=== PATIENT | female | born 1940 | race Caucasian/White ===

== ENCOUNTER 2018-07-31 12:08 | Outpatient (CLI) | payer MEDICARE, BC, OTHER | END 2018-07-31 12:09 | disposition home or self-care (01) | LOC: BICMAMMO 12:08 | PROVIDERS: ATTEND Obstetrics & Gynecology | DX: Z12.31 Encounter for screening mammogram for malignant neoplasm of breast (principal); Z80.3 Family history of malignant neoplasm of breast | CPT/HCPCS: 77063; 77067 ==

== ENCOUNTER 2019-03-23 07:03 | Outpatient (CLI) | payer MEDICARE, BC, OTHER ==
--- NOTE | 2019-03-23 09:57 | MRI ---
MRI ABDOMEN WITH AND WITHOUT CONTRAST: Date: 03/23/19 HISTORY: Z12.11 screening for malignant neoplasm of colon. COMPARISON: Ultrasound dated 01/31/19. TECHNIQUE: MRI abdomen performed prior to and after the intravenous administration of contrast. 3D rendering was provided. FINDINGS: Large sliding hiatal hernia. No pericardial effusion. No abnormal arterial enhancing hepatic mass. Gallbladder is unremarkable. Spleen is unremarkable. Exophytic 7 mm mass interpolar left kidney has slight increased T1 signal wit h small masses really too small to fully characterize, although not felt to have significant enhancem ent. There is a single T2 hyperintense focus within the ventral pancreatic body measuring 7 mm without enh ancement. No definite connection with the main pancreatic duct. No intrahepatic or extrahepatic biliary dilatat ion. No retroperitoneal or periaortic adenopathy. Aortic contour is nonaneurysmal. IMPRESSION: 1. No abnormal hepatic mass. 2. 7-8 mm T2 hyperintense focus of the ventral pancreatic body. Per ACR white paper, a follow-up MRI pancreatic protocol in 2 years is recommended given its small size and patient age. 3. 7-8 mm intrinsically T1 hyperintense focus left kidney, which is exophytic, likely a hemorrhagic/ proteinaceous cyst without significant enhancement. 4. No acute intra-abdominal abnormality. POS: TPC
[2019-03-23] MEDS ORDERED: Gadobenate Dimeglumine 529 MG/1 ML (20ML VIAL) ONE (12:27)
== END 2019-03-23 07:04 | disposition home or self-care (01) ==
LOC: BICMRI 07:03
PROVIDERS: ATTEND Internal Medicine Gastroenterology
DX: Z12.11 Encounter for screening for malignant neoplasm of colon (principal); R10.13 Epigastric pain; R10.31 Right lower quadrant pain; R11.2 Nausea with vomiting, unspecified; R93.422 Abnormal radiologic findings on diagnostic imaging of left kidney
CPT/HCPCS: 74183; 82565; A9577

== ENCOUNTER 2019-06-07 14:50 | Outpatient (CLI) | payer MEDICARE, BC, OTHER ==
--- NOTE | 2019-06-07 15:07 | RAD ---
RIGHT HIP 2 VIEWS: HISTORY: Right hip pain FINDINGS: There are degenerative changes manifested by osteophyte formation and joint space narrowing. No fract ure, dislocation or bony destruction is seen. IMPRESSION: Moderate-severe right hip osteoarthritis.
== END 2019-06-07 14:51 | disposition home or self-care (01) ==
LOC: BICRAD 14:50
PROVIDERS: ATTEND Physical Medicine & Rehabilitation
DX: M25.551 Pain in right hip (principal); M16.11 Unilateral primary osteoarthritis, right hip

== ENCOUNTER → 2019-07-11 | Day surgery (SDC) | payer MEDICARE, BC, OTHER ==
[~2019-07-11] MED LIST: Oxymetazoline HCl 0.05% ( 15 ML ) ONE
== END ==
LOC: ENDO/OP 07:54
PROVIDERS: ATTEND Surgery
DX: K44.9 Diaphragmatic hernia without obstruction or gangrene (principal); M19.90 Unspecified osteoarthritis, unspecified site; I10 Essential (primary) hypertension; E07.9 Disorder of thyroid, unspecified; Z79.899 Other long term (current) drug therapy
CPT/HCPCS: 91010

== ENCOUNTER 2019-07-16 10:15 | Inpatient (IN) | payer MEDICARE, BC, OTHER ==
[2019-07-16 10:40] VITALS: BMI 31.3
[2019-07-18] MEDS ORDERED: Bupivacaine/Epinephrine 0.25% 30 ML VIAL ONE (06:55)
[2019-07-18] MEDS ORDERED: Fentanyl 100 MCG/2 ML VIAL ONE (06:59)
[2019-07-18] MEDS ORDERED: SUGAMMADEX SODIUM 200 MG/2 ML VIAL ONE (07:18)
[2019-07-18] MEDS ORDERED: Dextrose 5% in Water 1,000 ML IV PRN (10:15)
[2019-07-18] MEDS ORDERED: Ondansetron HCl/PF 4 MG/2 ML Vial IVP PRN (10:15)
[2019-07-18] MEDS ORDERED: Promethazine HCl 25 MG/ML VIAL IM PRN ×2 (10:15)
[2019-07-18] MEDS ORDERED: hydrALAZINE 20 MG/ML VIAL SLOW IVP PRN (10:15)
[2019-07-18] MEDS ORDERED: Promethazine HCl 25 MG/ML VIAL SLOW IVP PRN (10:15)
[2019-07-18] MEDS ORDERED: Hydrocodone-Acetamin 15 ML UDCUP PO PRN (10:15)
[2019-07-18] MEDS ORDERED: Dextrose 50% Abboject 50 ML SYRINGE SLOW IVP PRN (10:15)
[2019-07-18] MEDS ORDERED: Morphine 2 MG/ML SYRINGE SLOW IVP PRN (10:15)
[2019-07-18] MEDS ORDERED: Morphine 4 MG/ML VIAL SLOW IVP PRN (10:15)
[2019-07-18] MEDS ORDERED: Ondansetron PF 4 MG/2 ML Vial IVP PRN (10:15)
[2019-07-18] MEDS ORDERED: HYDROmorphone 2 MG/ML VIAL SLOW IVP PRN (10:15)
[2019-07-18] MEDS ORDERED: Acetaminophen 1,000 MG in Premix Bag 1 BAG IVPB SCH (10:15)
[2019-07-18] MEDS ORDERED: Meperidine HCl/PF 25 MG/ML VIAL SLOW IVP PRN (10:15)
[2019-07-18] MEDS ORDERED: Ketorolac Tromethamine 30 MG/ML VIAL IVP PRN (10:15)
[2019-07-18] MEDS ORDERED: diphenhydrAMINE 50 MG/ML VIAL IVP PRN (10:15)
[2019-07-18] MEDS ORDERED: Ondansetron PF 4 MG/2 ML Vial ONE (10:33)
[2019-07-18] MEDS ORDERED: Ketorolac Tromethamine 30 MG/ML VIAL IVP SCH (12:00)
[2019-07-18] MEDS ORDERED: D5 1/2 NS w/20 mEq KCL 1,000 ML ONE (12:01)
--- NOTE | 2019-07-18 13:43 | OP ---
DATE OF PROCEDURE: 07/18/2019 PREOPERATIVE DIAGNOSIS: Large paraesophageal hiatal hernia. PROCEDURE PERFORMED: Laparoscopic paraesophageal hiatal hernia repair with mesh with esophagogastroscopy. INDICATIONS: The patient is 78-year-old female with large paraesophageal hiatal hernia that is symptomatic. FINDINGS: About three-quarters of her chest was intra-abdominally. She had extremely large diaphragmatic defect repaired both with sutures and mesh. DESCRIPTION OF PROCEDURE: After informed consent was obtained, the patient was taken to the operating room and given general endotracheal anesthesia. She was placed in the supine position. Abdomen was prepped and draped in usual fashion. Local anesthesia was infiltrated subcutaneously and deep and a 5-mm incision was performed approximately 6 inches below the xiphoid slightly to the left. Veress needle was inserted. Drop test was performed. Pneumoperitoneum was created to a volume of 2 L of carbon dioxide. Utilizing a bladeless 5-mm trocar and 0-degree laparoscope, direct visual entry into the abdominal cavity was performed. Pneumoperitoneum was then created to a pressure of 15 mmHg and the patient placed in steep reverse Trendelenburg position. Pablo liver retractor was inserted. Left lobe of the liver retracted superiorly. A 5-mm port was placed just to the left of the falciform. An 8-mm port placed left subcostal, and another 5-mm port placed further lateral left abdominal wall. The defect was easily seen. It was extremely large. The stomach was retracted from the defect. Some of it was still attached with peritoneal attachments. The gastrophrenic ligament was divided utilizing the LigaSure. The peritoneum was opened circumferentially around the crura. This allowed further reduction of the hernia sac and the stomach. Eventually, I was able to get the stomach dissected out and a retroesophageal window was created using blunt dissection. A Leisenring drain was then placed through this to aid in dissection and retraction. The stomach was retracted inferiorly to include a piece of esophagus. The hiatal opening was thoroughly dissected out. Then, a 43-[place] bougie was inserted directed into the stomach. A posterior crural plication was performed utilizing 0 Ethibond with the Sew-Right and Ti-Knot device, 4 sutures used. Then, biologic mesh was used. This was cut as a heart shape with a [place]ak cut out in the middle, hydrated further and inserted intra-abdominally. It was sutured to the diaphragm around the esophagus with interrupted 2-0 silk sutures tied intracorporeally. Then, the short gastrics were taken down utilizing the LigaSure. The fundus was grasped and brought to the right side of the esophagus and a fundoplication was performed between left fundus, esophagus, and right fundus with interrupted 2-0 silk sutures tied intracorporeally. Then, intraoperative endoscopy was performed. The video endoscope inserted under direct vision and advanced into the stomach. The stomach had no torsion. There was no paraesophageal component. The pylorus was cannulated. Everything was fine. Stomach decompressed. Scope removed. Then, a gastropexy was performed between the fundus and the left abdominal wall with a 2-0 silk suture tied intracorporeally. Then, Tisseel tissue sealant was applied circumferentially to the diaphragm and wrapped. The abdomen was decompressed. Scope was removed. The skin was closed with interrupted 4-0 Rapide. Dermabond was applied. The patient tolerated the procedure well, transferred to Recovery in good condition. Sponge and needle count verified correct x2. Job ID: [id number]
[2019-07-18] MEDS ORDERED: CEFAZOLIN 2 GM in Premix Bag 1 BAG IVPB SCH (14:00)
[2019-07-18] MEDS: Acetaminophen 1,000 MG in Premix Bag 1 BAG IVPB SCH ×2 (14:40→20:17)
[2019-07-18] MEDS: Ketorolac Tromethamine 30 MG/ML VIAL IVP SCH ×2 (16:33→23:39)
[2019-07-18] MEDS: CEFAZOLIN 2 GM in Premix Bag 1 BAG IVPB SCH ×2 (16:33→23:39)
[2019-07-18] MEDS ORDERED: Chloraseptic Spray 180 ml Bottle PO PRN (16:53)
[2019-07-18] MEDS ORDERED: Cepastat Lozenges 1 LOZ PO PRN (16:53)
[2019-07-18] MEDS: D5 1/2 NS w/20 mEq KCL 1,000 ML IV SCH ×2 (18:55→20:17)
[2019-07-19] MEDS: Acetaminophen 1,000 MG in Premix Bag 1 BAG IVPB SCH ×2 (03:27→10:59)
[2019-07-19] MEDS: Ketorolac Tromethamine 30 MG/ML VIAL IVP SCH ×3 (04:26→17:41)
[2019-07-19] MEDS: D5 1/2 NS w/20 mEq KCL 1,000 ML IV SCH ×2 (04:27→11:34)
[2019-07-19 05:57] LABS: #Monocytes 0.9 thou/uL (0.11-0.59); #Neutrophils 8.5 thou/uL (1.40-6.50); %Basophils 0.2 % (0.0-1.0); %Eosinophils 0.3 % (0.0-10.0); %Lymphocytes 9.6 % (21.0-51.0); %Monocytes 8.8 % (0.0-10.0); %Neutrophils 81.2 % (42.0-75.0); Hemoglobin 11.3 g/dL (12.0-16.0); Mean Corpuscular Hemoglobin 31.9 pg (27.0-31.0); Mean Corpuscular Volume 93.9 fL (78.0-98.0); Platelet Count 129 thou/uL (130-400); RBC Distribution Width 11.8 % (11.5-14.5); Red Blood Cell (RBC) Count 3.54 mill/uL (4.20-5.40); White Blood Cell (WBC) Count 10.4 thou/uL (4.8-10.8)
[2019-07-19 06:09] LABS: Anion Gap 10 mmol/L (10-20); BUN (Urea Nitrogen) 16 mg/dL (9.8-20.1); Calc. Creatinine Clearance 73 mL/min (70-130); Calcium 8.1 mg/dL (7.8-10.44); Carbon Dioxide 24 mmol/L (23-31); Chloride 108 mmol/L (98-107); Estimated GFR-MDRD 61; Glucose 146 mg/dL (83-110); Potassium 3.9 mmol/L (3.5-5.1); Sodium 138 mmol/L (136-145)
[2019-07-19] MEDS ORDERED: Pantoprazole 40 MG VIAL IVP SCH (09:00)
[2019-07-19] MEDS ORDERED: Enoxaparin Sodium 30 MG/0.3 ML SYRINGE SC SCH (09:00)
--- NOTE | 2019-07-19 09:18 | RAD ---
XR UGI Single Contrast No Air HISTORY: Postop hiatal hernia repair surgery. Procedure: Single sip swallow study was performed with administration of 15 mL contrast under fluoros copy. FINDINGS: Contrast traverses the gastroesophageal junction. No leak or evidence of obstruction. IMPRESSION: Normal study.
[2019-07-19 15:30] VITALS: BP 148/75; TEMP 96.1
--- NOTE | 2019-07-19 23:31 | DIS ---
DATE OF ADMISSION: 07/18/2019 DATE OF DISCHARGE: 07/19/2019 DISCHARGE DIAGNOSIS: Large paraesophageal hiatal hernia. PROCEDURES DURING ADMISSION: Laparoscopic paraesophageal hiatal hernia repair with mesh, esophagogastroscopy, postoperative Gastrografin swallow. HOSPITAL COURSE: The patient was admitted, taken to the operating room where she underwent repair of this large hiatal hernia. Postoperatively, she has done well. Her pain is well controlled on p.o. medications. She is tolerating liquids well. X-ray was fine. She is discharged home on hydrocodone and Zofran. She will follow up with me in 2 weeks. Job ID: [id number]
== END 2019-07-19 17:41 | disposition home or self-care (01) | DRG 328 ==
LOC: SURG A 07-18 06:02
PROVIDERS: ADMIT Surgery; ATTEND Surgery
PROC: 0BUT4JZ Supplement Diaphragm with Synthetic Substitute, Percutaneous Endoscopic Approach (ICD-10-PCS; principal; 2019-07-18)
PROC: 0DJ08ZZ Inspection of Upper Intestinal Tract, Via Natural or Artificial Opening Endoscopic (ICD-10-PCS; 2019-07-18)
PROC: 0DV44ZZ Restriction of Esophagogastric Junction, Percutaneous Endoscopic Approach (ICD-10-PCS; 2019-07-18)
DX: K44.9 Diaphragmatic hernia without obstruction or gangrene (principal); Z98.49 Cataract extraction status, unspecified eye
CPT/HCPCS: 36415; 74241; 80048; 80053; 85025; 93005; 93010; 94760; C9113; J0131; J0690; J1650; J1885; J2405; J3010; Q4130

== ENCOUNTER 2019-07-16 10:28 | Outpatient (CLI) | payer MEDICARE, BC, OTHER ==
[2019-07-16 11:58] LABS: #Basophils 0.1 thou/uL (0.0-0.2); #Eosinphils 0.1 thou/uL (0.0-0.7); #Lymphocytes 1.6 thou/uL (1.20-3.40); #Monocytes 0.6 thou/uL (0.11-0.59); #Neutrophils 4.4 thou/uL (1.40-6.50); %Eosinophils 1.6 % (0.0-10.0); %Lymphocytes 23.4 % (21.0-51.0); %Monocytes 8.7 % (0.0-10.0); %Neutrophils 65.2 % (42.0-75.0); Hemoglobin 14.3 g/dL (12.0-16.0); Mean Corpuscular HGB CONC 32.8 g/dL (32.0-36.0); Mean Corpuscular Hemoglobin 30.9 pg (27.0-31.0); Mean Platelet Volume 8.9 fL (7.4-10.4); Platelet Count 173 thou/uL (130-400); RBC Distribution Width 11.8 % (11.5-14.5); Red Blood Cell (RBC) Count 4.64 mill/uL (4.20-5.40); White Blood Cell (WBC) Count 6.7 thou/uL (4.8-10.8)
[2019-07-16 12:20] LABS: ALT (SGPT) 11 U/L (8-55); AST (SGOT) 17 U/L (5-34); Albumin 4.3 g/dL (3.4-4.8); Alkaline Phosphatase 62 U/L (40-110); Anion Gap 13 mmol/L (10-20); BUN (Urea Nitrogen) 16 mg/dL (9.8-20.1); Bilirubin, Total 0.5 mg/dL (0.2-1.2); Calc. Creatinine Clearance 0 mL/min (70-130); Calcium 9.7 mg/dL (7.8-10.44); Carbon Dioxide 28 mmol/L (23-31); Chloride 105 mmol/L (98-107); Estimated GFR-MDRD 60; Globulin 2.6 g/dL (2.4-3.5); Glucose 95 mg/dL (83-110); Potassium 4.6 mmol/L (3.5-5.1); Protein, Total 6.9 g/dL (6.0-8.3); Sodium 141 mmol/L (136-145)
--- NOTE | 2019-07-17 16:21 | EKG ---
Test Reason : Blood Pressure : / mmHG Vent. Rate : 067 BPM Atrial Rate : 067 BPM P-R Int : 154 ms QRS Dur : 084 ms QT Int : 422 ms P-R-T Axes : 053 037 045 degrees QTc Int : 445 ms Normal sinus rhythm Normal ECG Confirmed by GREGORIO ERAZO ([id number]) on 07/17/2019 4:21:47 PM Referred By: CORINNE Confirmed By:GREGORIO ERAZO
== END 2019-07-16 10:29 | disposition home or self-care (01) ==
LOC: LABBT 10:28
PROVIDERS: ATTEND Surgery
DX: Z01.818 Encounter for other preprocedural examination (principal); K44.9 Diaphragmatic hernia without obstruction or gangrene
CPT/HCPCS: 80053; 85025; 93005; 93010

== ENCOUNTER 2019-09-04 10:40 | Outpatient (CLI) | payer MEDICARE, BC, OTHER ==
--- NOTE | 2019-09-04 15:18 | MMO ---
Bilateral MAMMO Bilat Screen [facility]. CLINICAL HISTORY: Patient is 78 years old and is seen for screening. The patient has no personal history of cancer. The patient has a history of right Ultrasound Guided Core Biopsy in ?2000 - benign. VIEWS: The views performed were: bilateral craniocaudal with tomosynthesis and bilateral mediolateral oblique with tomosynthesis. FILMS COMPARED: The present examination has been compared to prior imaging studies performed at [facility] on 09/22/2015, 09/23/2016, 07/26/2017 and 07/31/2018. This study has been interpreted with the assistance of computer-aided detection. MAMMOGRAM FINDINGS: There are scattered fibroglandular densities. There are benign appearing and vascular calcifications seen in both breasts. There are no suspicious masses, suspicious calcifications, or new areas of architectural distortion. IMPRESSION: THERE IS NO MAMMOGRAPHIC EVIDENCE OF MALIGNANCY. A ROUTINE FOLLOW-UP MAMMOGRAM IN 1 YEAR IS RECOMMENDED. THE RESULTS OF THIS EXAM WERE SENT TO THE PATIENT. ACR BI-RADS Category 2 - Benign finding MAMMOGRAPHY NOTE: 1. A negative mammogram report should not delay a biopsy if a dominant of clinically suspicious mass is present. 2. Approximately 10% to 15% of breast cancers are not detected by mammography. 3. Adenosis and dense breasts may obscure an underlying neoplasm. Reported by: SRIKANTH HUNT MD Electonically Signed: [id number]
== END 2019-09-04 10:41 | disposition home or self-care (01) ==
LOC: BICMAMMO 10:40
PROVIDERS: ATTEND Obstetrics & Gynecology
DX: Z12.31 Encounter for screening mammogram for malignant neoplasm of breast (principal)
CPT/HCPCS: 77063; 77067

== ENCOUNTER 2020-09-05 10:19 | Outpatient (CLI) | payer MEDICARE, BC, OTHER ==
--- NOTE | 2020-09-05 11:29 | MMO ---
Bilateral MAMMO Bilat Screen [facility]. CLINICAL HISTORY: Patient is 79 years old and is seen for screening. The patient has no personal history of cancer. The patient has a history of right Ultrasound Guided Core Biopsy in ?2000 - benign. VIEWS: The views performed were: bilateral craniocaudal with tomosynthesis and bilateral mediolateral oblique with tomosynthesis. FILMS COMPARED: The present examination has been compared to prior imaging studies performed at [facility] on 09/23/2016, 07/26/2017, 07/31/2018 and 09/04/2019. This study has been interpreted with the assistance of computer-aided detection. MAMMOGRAM FINDINGS: There are scattered fibroglandular densities. Benign calcifications are noted bilaterally. Right biopsy clip. There are no suspicious masses, suspicious calcifications, or new areas of architectural distortion. IMPRESSION: THERE IS NO MAMMOGRAPHIC EVIDENCE OF MALIGNANCY. A ROUTINE FOLLOW-UP MAMMOGRAM IN 1 YEAR IS RECOMMENDED. THE RESULTS OF THIS EXAM WERE SENT TO THE PATIENT. ACR BI-RADS Category 2 - Benign finding MAMMOGRAPHY NOTE: 1. A negative mammogram report should not delay a biopsy if a dominant of clinically suspicious mass is present. 2. Approximately 10% to 15% of breast cancers are not detected by mammography. 3. Adenosis and dense breasts may obscure an underlying neoplasm. Reported by: GREGORIA MONACO MD Electonically Signed: [id number]
== END 2020-09-05 10:20 | disposition home or self-care (01) ==
LOC: BICMAMMO 10:19
PROVIDERS: ATTEND Internal Medicine
DX: Z12.31 Encounter for screening mammogram for malignant neoplasm of breast (principal); Z91.89 Other specified personal risk factors, not elsewhere classified
CPT/HCPCS: 77063; 77067

== ENCOUNTER 2021-07-09 13:04 | Outpatient (CLI) | payer MEDICARE, BC, OTHER ==
[2021-07-09 15:04] LABS: #Eosinphils 0.1 10x3/uL (0.0-0.5); #Monocytes 0.6 10x3/uL (0.0-1.1); %Basophils 0.3 % (0.0-2.0); %Eosinophils 1.3 % (0.0-6.0); %Lymphocytes 23.6 % (18.0-47.0); %Neutrophils 64.5 % (40.0-75.0); Hemoglobin 13.6 g/dL (12.0-15.5); Mean Corpuscular HGB CONC 32.8 g/dL (32.0-36.0); Mean Corpuscular Hemoglobin 31.2 pg (27.0-33.0); Mean Corpuscular Volume 95.2 fl (81.6-98.3); Mean Platelet Volume 11.9 fl (7.4-10.4); Platelet Count 175 10x3/uL (150-450); RBC Distribution Width 13.2 % (11.5-14.5); Red Blood Cell (RBC) Count 4.36 10x6/uL (3.90-5.03); White Blood Cell (WBC) Count 6.2 10x3/uL (3.5-10.5)
[2021-07-09 15:13] LABS: Prothrombin Time 11.1 sec (9.5-12.1)
[2021-07-09 15:21] LABS: Anion Gap 15 mmol/L (10-20); BUN (Urea Nitrogen) 20 mg/dL (9.8-20.1); Calc. Creatinine Clearance 0 mL/min (70-130); Calcium 9.4 mg/dL (7.8-10.44); Carbon Dioxide 24 mmol/L (23-31); Chloride 104 mmol/L (98-107); Glucose 86 mg/dL (83-110); Potassium 4.3 mmol/L (3.5-5.1); Sodium 139 mmol/L (136-145)
[2021-07-10 12:07] LABS: SARS-CoV-2 PCR by NAA Not Detected (NotDetected)
== END 2021-07-09 13:05 | disposition home or self-care (01) ==
LOC: LABBT 13:04
PROVIDERS: ATTEND Orthopaedic Surgery
DX: Z01.818 Encounter for other preprocedural examination (principal); M16.11 Unilateral primary osteoarthritis, right hip; Z20.822 Contact with and (suspected) exposure to COVID-19
CPT/HCPCS: 80048; 85025; 85610; 87081; U0003; U0005

== ENCOUNTER 2021-07-14 06:37 | Day surgery (SDC) | payer MEDICARE, BC, OTHER ==
[2021-07-13 10:06] VITALS: BMI 31.3
[2021-07-14] MEDS ORDERED: Sodium Chloride 0.9% 100 ML ONE (07:08)
[2021-07-14] MEDS ORDERED: Tranexamic Acid 1,000 MG/10 ML VIAL ONE (07:08)
[2021-07-14] MEDS ORDERED: Vancomycin 1.5 GRAM/300 ML BAG 1.5 GM in Premix Bag 1 BAG IVPB SCH (07:15)
[2021-07-14] MEDS ORDERED: Midazolam HCl 2 mg/2 ml Vial ONE ×2 (08:01→09:07)
[2021-07-14] MEDS ORDERED: Fentanyl 100 MCG/2 ML VIAL ONE ×2 (08:01→09:02)
[2021-07-14] MEDS ORDERED: Bupivacaine HCl 0.5%/Epinephrine 1:200,000/PF 30 ml Vial ONE (09:09)
[2021-07-14] MEDS ORDERED: PHENYLEPHRINE-NS 100 MCG/ML 10 ML SYRINGE ONE (09:09)
[2021-07-14] MEDS ORDERED: ePHEDrine 50 MG/ML VIAL ONE (09:09)
[2021-07-14] MEDS ORDERED: Bupivacaine PF 0.5% 30 ML VIAL ONE (10:16)
[2021-07-14] MEDS ORDERED: Promethazine HCl 25 MG/ML VIAL IVPB PRN (10:17)
[2021-07-14] MEDS ORDERED: Ondansetron HCl/PF 4 MG/2 ML Vial IVP PRN (10:17)
[2021-07-14] MEDS ORDERED: Promethazine HCl 25 MG/ML VIAL IM PRN (10:17)
[2021-07-14] MEDS ORDERED: Ondansetron PF 4 MG/2 ML Vial ONE (12:11)
[2021-07-14] MEDS ORDERED: HYDROcodone/Acetaminophen 5/325 mg Tablet ONE ×2 (13:22→13:25)
== END 2021-07-14 13:44 | disposition home or self-care (01) ==
LOC: SDC 06:37
PROVIDERS: ATTEND Orthopaedic Surgery
PROC: 0SR904A Replacement of Right Hip Joint with Ceramic on Polyethylene Synthetic Substitute, Uncemented, Open Approach (ICD-10-PCS; principal; 2021-07-14)
PROC: 3E0T3BZ Introduction of Anesthetic Agent into Peripheral Nerves and Plexi, Percutaneous Approach (ICD-10-PCS; 2021-07-14)
DX: M16.11 Unilateral primary osteoarthritis, right hip (principal); I10 Essential (primary) hypertension; E07.9 Disorder of thyroid, unspecified; Z79.82 Long term (current) use of aspirin; Z79.899 Other long term (current) drug therapy
CPT/HCPCS: C1776; J2250; J2405; J3010; J3370; J3490; S0020

== ENCOUNTER 2022-01-13 11:18 | Outpatient (CLI) | payer MEDICARE, BC, OTHER ==
[2022-01-13 13:09] LABS: #Eosinphils 0.1 10x3/uL (0.0-0.5); #Monocytes 0.7 10x3/uL (0.0-1.1); #Neutrophils 4.5 10x3/uL (1.5-8.4); %Basophils 0.3 % (0.0-2.0); %Eosinophils 1.9 % (0.0-6.0); %Lymphocytes 22.7 % (18.0-47.0); %Neutrophils 64.8 % (40.0-75.0); Hemoglobin 14.1 g/dL (12.0-15.5); Mean Corpuscular HGB CONC 33.2 g/dL (32.0-36.0); Mean Corpuscular Hemoglobin 30.9 pg (27.0-33.0); Mean Platelet Volume 11.9 fl (7.4-10.4); Platelet Count 195 10x3/uL (150-450); RBC Distribution Width 14.2 % (11.5-14.5); Red Blood Cell (RBC) Count 4.57 10x6/uL (3.90-5.03); White Blood Cell (WBC) Count 6.9 10x3/uL (3.5-10.5)
[2022-01-13 13:31] LABS: ALT (SGPT) 10 U/L (8-55); AST (SGOT) 18 U/L (5-34); Albumin 3.9 g/dL (3.4-4.8); Alkaline Phosphatase 69 U/L (40-110); Anion Gap 14 mmol/L (10-20); BUN (Urea Nitrogen) 18 mg/dL (9.8-20.1); Bilirubin, Total 0.5 mg/dL (0.2-1.2); Calc. Creatinine Clearance 0 mL/min (70-130); Calcium 9.2 mg/dL (7.8-10.44); Carbon Dioxide 25 mmol/L (23-31); Chloride 106 mmol/L (98-107); Globulin 2.5 g/dL (2.4-3.5); Glucose 111 mg/dL (83-110); Potassium 4.3 mmol/L (3.5-5.1); Protein, Total 6.4 g/dL (5.8-8.1); Sodium 141 mmol/L (136-145)
[2022-01-13 21:50] LABS: SARS-CoV-2 PCR by NAA Not Detected (NotDetected)
== END 2022-01-13 11:19 | disposition home or self-care (01) ==
LOC: LABBT 11:18
PROVIDERS: ATTEND Surgery
DX: Z01.812 Encounter for preprocedural laboratory examination (principal); R92.0 Mammographic microcalcification found on diagnostic imaging of breast; Z20.822 Contact with and (suspected) exposure to COVID-19
CPT/HCPCS: 80053; 85025; U0003; U0005

== ENCOUNTER 2022-01-18 06:53 | Day surgery (SDC) | payer MEDICARE, BC, OTHER ==
[2022-01-14 12:34] VITALS: BMI 29.5
[2022-01-18] MEDS ORDERED: Bupivacaine 0.25% 10 ML VIAL ONE (09:27)
[2022-01-18] MEDS ORDERED: Lidocaine 1% w/Epinephrine 1:100K 20 ML VIAL ONE (09:27)
[2022-01-18] MEDS ORDERED: ceFAZolin (BATCH) 2 GM/100 ML BAG ONE (09:40)
[2022-01-18] MEDS ORDERED: fentaNYL Citrate/PF 100 MCG/2 ML SYRINGE ONE (09:50)
[2022-01-18] MEDS ORDERED: Ondansetron PF 4 MG/2 ML Vial ONE (09:58)
[2022-01-18] MEDS ORDERED: PROPOFOL 200 MG/20 ML VIAL ONE (09:58)
[2022-01-18] MEDS ORDERED: Lidocaine 1% PF 5 ML VIAL ONE (09:58)
[2022-01-18] MEDS ORDERED: Dexamethasone 20 MG/5 ML VIAL ONE (09:58)
== END 2022-01-18 12:20 | disposition home or self-care (01) ==
LOC: SDC 06:53
PROVIDERS: ATTEND Surgery
PROC: 0HBT0ZZ Excision of Right Breast, Open Approach (ICD-10-PCS; principal; 2022-01-18)
DX: C50.811 Malignant neoplasm of overlapping sites of right female breast (principal); N60.91 Unspecified benign mammary dysplasia of right breast; N60.21 Fibroadenosis of right breast; M19.90 Unspecified osteoarthritis, unspecified site; I10 Essential (primary) hypertension; E07.9 Disorder of thyroid, unspecified; Z79.82 Long term (current) use of aspirin; Z79.890 Hormone replacement therapy; Z79.899 Other long term (current) drug therapy; Z88.5 Allergy status to narcotic agent
CPT/HCPCS: 19281; 76098; 88307; 88341; 88342; 93005; 93010; J0690; J1100; J2405; J2704; S0020

== ENCOUNTER 2022-02-18 09:39 | Outpatient (CLI) | payer MEDICARE, BC, OTHER | END 2022-02-18 09:40 | disposition home or self-care (01) | LOC: BICMAMMO 09:39 | PROVIDERS: ATTEND Internal Medicine Hematology & Oncology | DX: Z13.820 Encounter for screening for osteoporosis (principal); M85.852 Other specified disorders of bone density and structure, left thigh; Z78.0 Asymptomatic menopausal state | CPT/HCPCS: 77080 ==

== ENCOUNTER 2022-12-17 12:30 | Outpatient (CLI) | payer MEDICARE, BC, OTHER | END 2022-12-17 12:31 | disposition home or self-care (01) | LOC: BICMAMMO 12:30 | PROVIDERS: ATTEND Surgery | DX: Z08 Encounter for follow-up examination after completed treatment for malignant neoplasm (principal); Z85.3 Personal history of malignant neoplasm of breast | CPT/HCPCS: 77066; G0279 ==

== ENCOUNTER 2024-03-08 09:33 | Outpatient (CLI) | payer MEDICARE, OTHER | END 2024-03-08 09:34 | disposition home or self-care (01) | LOC: BICMAMMO 09:33 | PROVIDERS: ATTEND Internal Medicine Hematology & Oncology | DX: Z13.820 Encounter for screening for osteoporosis (principal); M85.852 Other specified disorders of bone density and structure, left thigh | CPT/HCPCS: 77080 ==